=== PATIENT | male | born 1990 | race Caucasian/White ===

== ENCOUNTER 2022-03-25 20:06 | Observation (INO) ==
--- NOTE | 2022-03-25 20:55 | Emergency Department Note ---
Impression & Plan Hypertensive emergency, Non-ST elevation [place] (NSTEMI), Acute CHF (congestive heart failure) ED Provider Note HISTORY OF PRESENT ILLNESS: Patient is a 31-year-old transgender female presenting with abdominal bloating. She was evaluated at her primary care provider's office and was found to be significantly hypertensive and was referred to the emergency department. Patient reports that she has been having significant swelling and bloating of her abdomen for the last week or so. Denies any chest pain. She reports shortness of breath with a nonproductive cough. Reports some subjective fevers. Denies any recent exposure to sick contacts. 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 ROS: as above PHYSICAL EXAM: Constitutional: Patient appears in no acute distress. HENT: Head: Normocephalic and atraumatic. Eyes: EOMI, PERRL Mouth/Throat: Mucous membranes moist. Neck: Trachea midline. Neck supple. Cardiovascular: Tachycardic with regular rhythm. No murmurs, rubs or gallops. Intact distal pulses. Pulmonary/Chest: No respiratory distress. Breath sounds clear and equal bilaterally. No wheezes or rales. Abdominal: BS +. Abdomen soft, no rebound or guarding. Generalized TTP. Back: No midline spinal tenderness, no paraspinal tenderness, no CVA tenderness. Musculoskeletal: No edema, tenderness or deformity noted. Skin: Warm and dry. No rash, erythema, pallor or cyanosis Psychiatric: Appropriate mood and affect for situation. Neurological: Alert and keenly responsive. CN II-XII grossly intact, moving all extremities equally and fully. MDM: - Vitals signs showed hypertension and tachycardia. - History obtained via patient. Patient presents with abdominal bloating. Patient reports that she has been having swelling and bloating of her abdomen for the last week or so when she presented to her outpatient primary care provider's office for further evaluation. She was found to be significantly hypertensive at the facility and referred to the emergency department for further evaluation. Patient reports she has been having a nonproductive cough "for a while." She smokes daily. She also was snorting methamphetamine up until 2 weeks ago. She reports that she does not take her prescribed antihypertensive medications - Chronic conditions affecting care: HTN - Differential diagnoses include, but are not limited to: ACS; ascites; pneumonia; urinary tract infection; kidney injury - Order placed for continuous cardiac monitoring. At this time, monitor showed rate of 115 bpm with normal sinus rhythm, per my interpretation. - External medical records reviewed. Patient follows up in [facility] for her type 2 diabetes, hypertension, bipolar disorder and gender dysphoria. She is supposed to be on carvedilol and losartan. - EKG reviewed by myself showed normal sinus rhythm. Rate 113 bpm. No acute ischemic changes. QTc 488. Normal intervals. Patient does have an incomplete right bundle branch block. No prior EKGs to compare to. - Laboratory workup interpreted by myself showed leukocytosis (WBC 13.0); stable electrolytes; elevated troponin (113.1); elevated BNP (525); elevated dimer - CXR shows slight cardiomegaly and perivascular congestion, per my int erpretation. - Patient significantly hypertensive on arrival. Given 5 mg of IV hydralazine with minimal impact on her pressures. Given that she has evidence of end organ damage classifying her in hypertensive urgency, she was started on an IV nitroglycerin drip for further blood pressure management. Repeat pressures on nitroglycerin drip are improved. IV nicardipine not utilized secondary to p atient's heart failure status. - Discussion was had with social work about patient's case and need for admission. - Hospitalist, Dr. Nunn, consulted for admission. - Patient admitted to [facility] Hospitalist service for further evaluation and management. I provided 48 minutes of critical care time to this patient's care outside of billable procedures. ASSESSMENT AND PLAN: Diagnosis: Hypertensive emergency; NSTEMI; acute CHF exacerbation Plan: admit Past Med/Surg History Medical History (Updated 03/25/22 @ 23:56 by Charlotte Rodgers MD) No pertinent family history Surgical History (Updated 12/28/20 @ 17:01 by Kevin Angeles) History of hernia repair History of kidney removal Social History (Updated 12/28/20 @ 17:03 by Kevin Angelse) Smoking Status: Current every day smoker Hx Alcohol Use: No Hx Substance Use: Yes Prescribed Medications: Marijuana Non-Prescribed Med ications: Crack / Cocaine and Methamphetamines Feels Safe at Home: Yes Sunscreen Use: No Allergies Allergies Allergy/AdvReac Type Severity Reaction Status Date / Time No Known Allergies Allergy Verified 12/28/20 16:49 Home Meds Home Medications Medication Instructions Recorded Confirmed aripiprazole 2 mg tablet (Abilify) 2 mg PO DAILY 12/28/20 12/28/20 atomoxetine 10 mg capsule 40 mg PO QAM 12/28/20 12/28/20 (Strattera) buspirone 5 mg tablet 5 mg PO BID 12/28/20 12/28/20 carvedilol phosphate 10 mg 10 mg PO DAILY 12/28/20 12/28/20 capsule,[id number] multiphase (Coreg CR) hydroxyzine pamoate 25 mg capsule 25 mg PO BID PRN 12/28/20 12/28/20 losartan 25 mg tablet 25 mg PO BID 12/28/20 12/28/20 metformin 500 mg tablet 500 mg PO DAILY 12/28/20 12/28/20 omeprazole 20 mg capsule,delayed 20 mg PO DAILY 12/28/20 12/28/20 release venlafaxine 75 mg capsule,extended 75 mg PO DAILY 12/28/20 12/28/20 release 24 hr (Effexor XR) Results & Data (ED) Vital Signs Vital Signs - 24 hr 03/25/22 20:12 03/25/22 20:42 03/25/22 20:50 Temperature 36.2 C L Temperature Source Temporal Artery Scan Pulse Rate 119 H 109 H 114 H Pulse Rate from SpO2 Sensor 109 H 115 H Respiratory Rate 20 22 17 Blood Pressure 209/157 H Blood Pressure Mean 174 Pulse Oximetry 97 98 99 Oxygen Delivery Method Room Air Sepsis Recent Fever Within 48 Hours No Sepsis New/Unexplained Change in Mental Status N/A Sepsis Action Taken by Nursing No Action Required 03/25/22 21:00 03/25/22 21:10 03/25/22 21:20 Temperature Temperature Source Pulse Rate 113 H 110 H 112 H Pulse Rate from SpO2 Sensor 114 H 110 H 112 H Respiratory Rate 19 12 15 Blood Pressure Blood Pressure Mean Pulse Oximetry 96 99 99 Oxygen Delivery Method Sepsis Recent Fever Within 48 Hours Sepsis New/Unexplained Change in Mental Status Sepsis Action Taken by Nursing 03/25/22 21:24 03/25/22 21:24 03/25/22 21:30 Temperature Temperature Source Pulse Rate 112 H Pulse Rate from SpO2 Sensor Respiratory Rate 14 Blood Pressure 205/142 H 228/160 H Blood Pressure Mean 163 182 Pulse Oximetry Oxygen Delivery Method Sepsis Recent Fever Within 48 Hours Sepsis New/Unexplained Change in Mental Status Sepsis Action Taken by Nursing 03/25/22 21:30 03/25/22 21:40 03/25/22 21:50 Temperature Temperature Source Pulse Rate 111 H 110 H 114 H Pulse Rate from SpO2 Sensor 109 H Respiratory Rate 25 H 20 30 H Blood Pressure Blood Pressure Mean Pulse Oximetry 97 Oxygen Delivery Method Sepsis Recent Fever Within 48 Hours Sepsis New/Unexplained Change in Mental Status Sepsis Action Taken by Nursing 03/25/22 22:00 03/25/22 22:00 03/25/22 22:10 Temperature Temperature Source Pulse Rate 113 H 112 H Pulse Rate from SpO2 Sensor Respiratory Rate 16 22 Blood Pressure 231/175 H Blood Pressure Mean 193 Pulse Oximetry Oxygen Delivery Method Sepsis Recent Fever Within 48 Hours Sepsis New/Unexplained Change in Mental Status Sepsis Action Taken by Nursing 03/25/22 22:19 03/25/22 22:19 03/25/22 22:20 Temperature Temperature Source Pulse Rate 112 H 112 H Pulse Rate from SpO2 Sensor Respiratory Rate 22 20 Blood Pressure 207/152 H Blood Pressure Mean 170 Pulse Oximetry Oxygen Delivery Method Sepsis Recent Fever Within 48 Hours Sepsis New/Unexplained Change in Mental Status Sepsis Action Taken by Nursing 03/25/22 22:27 03/25/22 22:27 03/25/22 22:30 Temperature Temperature Source Pulse Rate 113 H 113 H Pulse Rate from SpO2 Sensor Respiratory Rate 17 15 Blood Pressure 228/172 H Blood Pressure Mean 190 Pulse Oximetry Oxygen Delivery Method Sepsis Recent Fever Within 48 Hours Sepsis New/Unexplained Change in Mental Status Sepsis Action Taken by Nursing 03/25/22 22:38 03/25/22 22:38 03/25/22 22:40 Temperature Temperature Source Pulse Rate 111 H 112 H Pulse Rate from SpO2 Sensor Respiratory Rate 30 H 22 Blood Pressure 182/148 H Blood Pressure Mean 159 Pulse Oximetry Oxygen Delivery Method Sepsis Recent Fever Within 48 Hours Sepsis New/Unexplained Change in Mental Status Sepsis Action Taken by Nursing 03/25/22 22:41 03/25/22 22:41 03/25/22 22:50 Temperature Temperature Source Pulse Rate 115 H Pulse Rate from SpO2 Sensor Respiratory Rate 22 Blood Pressure 200/149 H 221/139 H Blood Pressure Mean 166 166 Pulse Oximetry Oxygen Delivery Method Sepsis Recent Fever Within 48 Hours Sepsis New/Unexplained Change in Mental Status Sepsis Action Taken by Nursing 03/25/22 22:50 03/25/22 23:00 03/25/22 23:00 Temperature Temperature Source Pulse Rate 117 H 115 H Pulse Rate from SpO2 Sensor Respiratory Rate 38 H 30 H Blood Pressure 223/159 H Blood Pressure Mean 180 Pulse Oximetry Oxygen Delivery Method Sepsis Recent Fever Within 48 Hours Sepsis New/Unexplained Change in Mental Status Sepsis Action Taken by Nursing 03/25/22 23:10 03/25/22 23:10 03/25/22 23:16 Temperature Temperature Source Pulse Rate 120 H Pulse Rate from SpO2 Sensor Respiratory Rate 26 H Blood Pressure 234/151 H 209/153 H Blood Pressure Mean 178 171 Pulse Oximetry Oxygen Delivery Method Sepsis Recent Fever Within 48 Hours Sepsis New/Unexplained Change in Mental Status Sepsis Action Taken by Nursing 03/25/22 23:16 03/25/22 23:20 03/25/22 23:20 Temperature Temperature Source Pulse Rate 118 H 119 H Pulse Rate from SpO2 Sensor Respiratory Rate 25 H 22 Blood Pressure 241/143 H Blood Pressure Mean 175 Pulse Oximetry Oxygen Delivery Method Sepsis Recent Fever Within 48 Hours Sepsis New/Unexplained Change in Mental Status Sepsis Action Taken by Nursing 03/25/22 23:30 03/25/22 23:30 03/25/22 23:40 Temperature Temperature Source Pulse Rate 119 H Pulse Rate from SpO2 Sensor Respiratory Rate 36 H Blood Pressure 223/139 H 215/166 H Blood Pressure Mean 167 182 Pulse Oximetry Oxygen Delivery Method Sepsis Recent Fever Within 48 Hours Sepsis New/Unexplained Change in Mental Status Sepsis Action Taken by Nursing 03/25/22 23:40 03/25/22 23:50 03/25/22 23:50 Temperature Temperature Source Pulse Rate 119 H 119 H Pulse Rate from SpO2 Sensor Respiratory Rate 29 H 37 H Blood Pressure 226/150 H Blood Pressure Mean 175 Pulse Oximetry Oxygen Delivery Method Sepsis Recent Fever Within 48 Hours Sepsis New/Unexplained Change in Mental Status Sepsis Action Taken by Nursing 03/26/22 00:00 03/26/22 00:00 03/26/22 00:05 Temperature Temperature Source Pulse Rate 117 H Pulse Rate from SpO2 Sensor Respiratory Rate 17 Blood Pressure 204/130 H 209/152 H Blood Pressure Mean 154 171 Pulse Oximetry Oxygen Delivery Method Sepsis Recent Fever Within 48 Hours Sepsis New/Unexplained Change in Mental Status Sepsis Action Taken by Nursing 03/26/22 00:05 03/26/22 00:10 03/26/22 00:10 Temperature Temperature Source Pulse Rate 120 H 121 H Pulse Rate from SpO2 Sensor Respiratory Rate 38 H 27 H Blood Pressure 176/152 H Blood Pressure Mean 160 Pulse Oximetry Oxygen Delivery Method Sepsis Recent Fever Within 48 Hours Sepsis New/Unexplained Change in Mental Status Sepsis Action Taken by Nursing Laboratory Data 03/25/22 20:47 03/25/22 20:47 Lab Results 03/25/22 03/25/22 03/25/22 Range/Units 20:47 20:47 20:47 WBC 13.00 H (4.8-10.8) K/ul RBC 4.60 L (4.63-6.08) M/uL Hgb 12.4 L (14.0-18.0) g/dl Hct 38.7 L (40.1-51.0) % MCV 84.1 (80.0-100.0) fL MCH 27.0 (25.0-34.0) pg MCHC 32.0 (32.0-36.0) g/dL RDW Std Deviation 45.3 (36.4-46.3) fL RDW Coeff of Liza 15.0 H (11.5-14.5) % Plt Count 383 (130-400) K/uL MPV 10.4 (9.4-12.4) fL Immature Gran % (Auto) 0.4 % Neut % (Auto) 73.4 % Lymph % (Auto) 17.1 % [place] % (Auto) 6.4 % Eos % (Auto) 1.8 % Baso % (Auto) 0.9 % Neut # (Auto) 9.54 H (1.4-6.5) K/uL Lymph # (Auto) 2.22 (1.2-3.4) K/uL [place] # (Auto) 0.83 H (0.24-0.82) K/uL Eos # (Auto) 0.24 (0-0.50) K/uL Baso # (Auto) 0.12 (0-0.2) K/uL Immature Gran # (Auto) 0.05 H (0.00-0.02) K/uL PT Cancelled INR Cancelled APTT Cancelled PTT Ratio Cancelled D-Dimer (0-500) ug/L FEU Sodium 136 (136-145) mmol/L Potassium 4.3 (3.5-5.1) mmol/L Chloride 106 (98-107) mmol/L Carbon Dioxide 23 (21-32) mmol/L Anion Gap 7 (3-11) BUN 14 (6-23) mg/dl Creatinine 0.87 (0.6-1.4) mg/dl Est Cr Clr Drug Dosing 174.0 ml/min Est GFR ( Amer) 132.4 ml/min Est GFR (Non-Af Amer) 114.2 ml/min BUN/Creatinine Ratio 16.1 (10-20) Glucose 116 H (70-99(Fasting)) mg/dl Calcium 8.7 (8.5-10.1) mg/dl Total Bilirubin 0.5 (0.2-1.0) mg/dl AST 64 H (13-39) U/L ALT 57 H (7-52) U/L Alkaline Phosphatase 107 H (34-104) U/L Troponin I High Sens 113.1 H* (0-20) pg/ml B-Natriuretic Peptide (0-100) pg/ml Total Protein 6.8 (6.0-8.3) gm/dl Albumin 3.6 (3.4-5.0) gm/dl Globulin 3.2 (2.5-4.0) gm/dl Albumin/Globulin Ratio 1.1 (0.9-2) Urine Color Urine Appearance (Clear) Urine pH (4.5-7.5) Ur Specific [place] (1.000-1.030) Urine Protein (Negative) Urine Glucose (UA) (Negative) Urine Ketones (Negative) Urine Blood (Negative) Urine Nitrite (Negative) Urine Bilirubin (Negative) Urine Urobilinogen (Negative) Ur Leukocyte Esterase (Negative) Urine WBC (Auto) (0-5) /hpf Urine RBC (Auto) (0-4) /hpf U Hyaline Cast (Auto) (0-5) /lpf U Epithel Cells (Auto) (0-5) /lpf Urine Bacteria (Auto) (Negative) 03/25/22 03/25/22 03/25/22 Range/Units 20:47 22:34 22:58 WBC (4.8-10.8) K/ul RBC (4.63-6.08) M/uL Hgb (14.0-18.0) g/dl Hct (40.1-51.0) % MCV (80.0-100.0) fL MCH (25.0-34.0) pg MCHC (32.0-36.0) g/dL RDW Std Deviation (36.4-46.3) fL RDW Coeff of Liza (11.5-14.5) % Plt Count (130-400) K/uL MPV (9.4-12.4) fL Immature Gran % (Auto) % Neut % (Auto) % Lymph % (Auto) % [place] % (Auto) % Eos % (Auto) % Baso % (Auto) % Neut # (Auto) (1.4-6.5) K/uL Lymph # (Auto) (1.2-3.4) K/uL [place] # (Auto) (0.24-0.82) K/uL Eos # (Auto) (0-0.50) K/uL Baso # (Auto) (0-0.2) K/uL Immature Gran # (Auto) (0.00-0.02) K/uL PT 11.0 INR 1.0 APTT 23.4 PTT Ratio 0.9 D-Dimer 660 H* (0-500) ug/L FEU Sodium (136-145) mmol/L Potassium (3.5-5.1) mmol/L Chloride (98-107) mmol/L Carbon Dioxide (21-32) mmol/L Anion Gap (3-11) BUN (6-23) mg/dl Creatinine (0.6-1.4) mg/dl Est Cr Clr Drug Dosing ml/min Est GFR ( Amer) ml/min Est GFR (Non-Af Amer) ml/min BUN/Creatinine Ratio (10-20) Glucose (70-99(Fasting)) mg/dl Calcium (8.5-10.1) mg/dl Total Bilirubin (0.2-1.0) mg/dl AST (13-39) U/L ALT (7-52) U/L Alkaline Phosphatase (34-104) U/L Troponin I High Sens (0-20) pg/ml B-Natriuretic Peptide 525 H (0-100) pg/ml Total Protein (6.0-8.3) gm/dl Albumin (3.4-5.0) gm/dl Globulin (2.5-4.0) gm/dl Albumin/Globulin Ratio (0.9-2) Urine Color Yellow Urine Appearance Clear (Clear) Urine pH 5.5 (4.5-7.5) Ur Specific [place] 1.020 (1.000-1.030) Urine Protein 4+ H (Negative) Urine Glucose (UA) Negative (Negative) Urine Ketones Negative (Negative) Urine Blood Negative (Negative) Urine Nitrite Negative (Negative) Urine Bilirubin Negative (Negative) Urine Urobilinogen Negative (Negative) Ur Leukocyte Esterase Negative (Negative) Urine WBC (Auto) 1-5 (0-5) /hpf Urine RBC (Auto) 0-4 (0-4) /hpf U Hyaline Cast (Auto) 1-5 (0-5) /lpf U Epithel Cells (Auto) 20-30 H (0-5) /lpf Urine Bacteria (Auto) Negative (Negative) Administered Medications Nitroglycerin/Dextrose (Nitroglycerin/D5w 100 Mcg/Ml) 250 mls @ 21 mls/hr IV .[id number] [facility]; Protocol Stop: 04/24/22 21:59 Last Titration: 03/26/22 00:14 Dose: 45 mcg/min, 27 mls/hr Documented By: Titration: 03/26/22 00:08 Dose: 40 mcg/min, 24 mls/hr Documented By: Titration: 03/25/22 23:53 Dose: 35 mcg/min, 21 mls/hr Documented By: Titration: 03/25/22 23:45 Dose: 30 mcg/min, 18 mls/hr Documented By: Titration: 03/25/22 23:36 Dose: 25 mcg/min, 15 mls/hr Documented By: Titration: 03/25/22 23:19 Dose: 20 mcg/min, 12 mls/hr Documented By: Titration: 03/25/22 23:10 Dose: 15 mcg/min, 9 mls/hr Documented By: Titration: 03/25/22 22:29 Dose: 10 mcg/min, 6 mls/hr Documented By: Admin: 03/25/22 22:00 Dose: 5 mcg/min, 3 mls/hr Documented By: NITIN Co-signed By: YODIT Discontinued Medications Clonidine HCl (Clonidine Hcl 0.1 Mg Tab) 0.1 mg PO NOW ONE Stop: 03/25/22 23:43 Last Admin: 03/26/22 00:06 Dose: 0.1 mg Documented By: NITIN Hydralazine HCl (Hydralazine Hcl 20 Mg/Ml Vial) 5 mg IV NOW ONE Stop: 03/25/22 21:19 Last Admin: 03/25/22 21:26 Dose: 5 mg Documented By: NITIN Labetalol HCl (Labetalol Hcl Iv 5 Mg/Ml 20ml) 10 mg IV NOW STA Stop: 03/25/22 23:37 Last Admin: 03/25/22 23:53 Dose: Not Given Documented By: NITIN Lisinopril (Lisinopril 5 Mg Tab) 5 mg PO NOW ONE Stop: 03/25/22 23:44 Last Admin: 03/26/22 00:06 Dose: 5 mg Documented By: NITIN Lorazepam (Lorazepam 2 Mg/1 Ml Vial) 0.5 mg IV NOW STA Stop: 03/25/22 23:06 Last Admin: 03/25/22 23:33 Dose: 0.5 mg Documented By: NITIN Nicotine (Nicotine 14 Mg/24 Hr Patch) 14 mg TD NOW STA Stop: 03/25/22 22:22 Last Admin: 03/25/22 23:18 Dose: Not Given Documented By: NITIN Nicotine Polacrilex (Nicotine Polacrilex 2 Mg Gum) 1 piece MT ONCE ONE Stop: 03/25/22 22:46 Last Admin: 03/25/22 23:09 Dose: 1 piece Documented By: NITIN Imaging Data Radiologist's Impression: Chest X-Ray 03/25/22 20:52 XR chest 1V portable CLINICAL HISTORY: Cough. COMPARISON STUDY: No previous studies for comparison. FINDINGS: Lung volumes are normal. No pneumothorax or pleural effusion is identified. There is mild enlargement of the cardiac silhouette. Slight in terstitial prominence is noted. There is no definite consolidation. Apparent retrocardiac opacities are likely artifactual. IMPRESSION: 1. Mild enlargement of the cardiac silhouette with interstitial prominence. This may reflect pulmonary vascular congestion. 2. Apparent retrocardiac opacities which are likely artifactual. If persistent symptoms, follow-up PA and lateral chest radiographs are recommended to exclude the less likely possibility of consolidation. ACT 112: Negative or not required by law. Electronically signed by: Genaro Kelley M.D. 03/25/2022 10:06 PM Discharge Plan Visit Data Chief Complaint: Illness Stated Complaint: REF BY DOC, HIGH BLOOD PRESSURE,WATER RETENTION ED Provider: Charlotte Rodgers Discharge Problem: Hypertensive emergency, Non-ST elevation [place] (NSTEMI), Acute CHF (congestive heart failure) Forms Stand Alone Forms: [facility] [place] Prescriptions Prescriptions: No Action atomoxetine [Strattera] 10 mg capsule 40 mg PO QAM hydroxyzine pamoate 25 mg capsule 25 mg PO BID PRN aripiprazole [Abilify] 2 mg tablet 2 mg PO DAILY venlafaxine [Effexor XR] 75 mg capsule,extended release 24hr 75 mg PO DAILY omeprazole 20 mg capsule,delayed release(DR/EC) 20 mg PO DAILY buspirone 5 mg tablet 5 mg PO BID carvedilol phosphate [Coreg CR] 10 mg capsule, ER multiphase 24 hr 10 mg PO DAILY Rx Instructions: must administer with a meal/food metformin 500 mg tablet 500 mg PO DAILY losartan 25 mg tablet 25 mg PO BID Referrals Referrals: Unknown,Unknown [] -
[2022-03-25 21:08] LABS: Basophils # (auto) 0.12 K/uL (0-0.2); Basophils % (auto) 0.9 %; Eosinophils # (auto) 0.24 K/uL (0-0.50); Eosinophils % (auto) 1.8 %; Hematocrit (blood only) 38.7 % (40.1-51.0); Hemoglobin 12.4 g/dl (14.0-18.0); Immature Granulocytes # (auto) 0.05 K/uL (0.00-0.02); Immature Granulocytes % (auto) 0.4 %; Lymphocytes # (auto) 2.22 K/uL (1.2-3.4); Lymphocytes % (auto) 17.1 %; Mean Corpuscular Volume 84.1 fL (80.0-100.0); Mean Platelet Volume 10.4 fL (9.4-12.4); Monocytes # (auto) 0.83 K/uL (0.24-0.82); Monocytes % (auto) 6.4 %; Neutrophils # (auto) 9.54 K/uL (1.4-6.5); Neutrophils % (auto) 73.4 %; Platelet Count 383 K/uL (130-400); RDW Standard Deviation 45.3 fL (36.4-46.3)
[2022-03-25] MEDS ORDERED: hydrALAZINE HCL 20 MG/ML VIAL IV ONE (21:18)
[2022-03-25] MEDS ORDERED: STAT IV Infusion **Titration per Protocol STA (21:48)
[2022-03-25 21:49] LABS: Troponin I High Sensitivity 113.1 pg/ml (0-20)
[2022-03-25 21:54] LABS: Albumin Level 3.6 gm/dl (3.4-5.0); Bilirubin,Total 0.5 mg/dl (0.2-1.0); Calcium 8.7 mg/dl (8.5-10.1); Potassium 4.3 mmol/L (3.5-5.1)
[2022-03-25 22:00] LABS: Albumin Globulin Ratio 1.1 (0.9-2); BUN Creatinine Ratio 16.1 (10-20); Est GFR (African American) 132.4 ml/min; Est GFR (Non-African American) 114.2 ml/min; Globulin 3.2 gm/dl (2.5-4.0); Total Protein 6.8 gm/dl (6.0-8.3)
[2022-03-25] MEDS: NITROGLYCERIN/D5W 100MCG/ML 250 ML IV SCH (22:00)
--- NOTE | 2022-03-25 22:08 | XRay Report ---
XR chest 1V portable CLINICAL HISTORY: Cough. COMPARISON STUDY: No previous studies for comparison. FINDINGS: Lung volumes are normal. No pneumothorax or pleural effusion is identified. There is mild e nlargement of the cardiac silhouette. Slight interstitial prominence is noted. There is no definite c onsolidation. Apparent retrocardiac opacities are likely artifactual. IMPRESSION: 1. Mild enlargement of the cardiac silhouette with interstitial prominence. This may reflect pulmonar y vascular congestion. 2. Apparent retrocardiac opacities which are likely artifactual. If persistent symptoms, follow-up PA and lateral chest radiographs are recommended to exclude the less likely possibility of consolidatio n. ACT 112: Negative or not required by law. Electronically signed by: Genaro Kelley M.D. 03/25/2022 10:06 PM
[2022-03-25] MEDS ORDERED: NICOTINE 14 MG/24 HR PATCH TD STA (22:21)
[2022-03-25] MEDS ORDERED: NICOTINE POLACRILEX 2 MG GUM MT ONE (22:45)
[2022-03-25 22:53] LABS: Partial Thromboplastin Ratio 0.9; Partial Thromboplastin Time 23.4 Seconds (21.0-31.0)
[2022-03-25] MEDS ORDERED: LORazepam 2 MG/1 ML VIAL IV STA (23:05)
[2022-03-25 23:31] LABS: D Dimer 660 ug/L FEU (0-500)
[2022-03-25] MEDS ORDERED: LABETALOL HCL IV 5 MG/ML 20ML IV STA (23:36)
[2022-03-25 23:40] LABS: Appearance Urine Clear (Clear); Bacteria Urine Automated Negative (Negative); Bilirubin Urine Negative (Negative); Blood Urine Negative (Negative); Color Urine Yellow; Epithelial Cell Urine Auto 20-30 /lpf (0-5); Glucose Urine UA Negative (Negative); Ketones Urine Negative (Negative); Leukocyte Esterase Urine Negative (Negative); Nitrite Urine Negative (Negative); Protein Urine 4+ (Negative); RBC Urine Automated 0-4 /hpf (0-4); Urobilinogen Urine Negative (Negative); pH Urine 5.5 (4.5-7.5)
[2022-03-25] MEDS ORDERED: cloNIDine HCL 0.1 MG TAB PO ONE ×2 (23:41→23:42)
[2022-03-25] MEDS ORDERED: lisinopril 5 MG TAB PO ONE (23:43)
[2022-03-26] MEDS ORDERED: FUROSEMIDE 40 MG/4 ML VIAL IV ONE (00:14)
[2022-03-26 00:54] LABS: POC Urine Bilirubin 1+ (Negative); POC Urine Blood 50 (Negative); POC Urine Glucose Normal (Normal); POC Urine Ketones 1+ (Small) (Negative); POC Urine Leukocytes Negative (Negative); POC Urine Nitrite Negative (Negative); POC Urine Protein 3+ (Negative); POC Urine Urobilinogen Normal (Normal); POC Urine pH 5 (4.5-7.5)
[2022-03-26 00:59] LABS: Influenza A virus by PCR Negative (Neg); Influenza B virus by PCR Negative (Neg); RSV by PCR Negative (Neg); SARS CoV2 RNA(COVID-19) Ceph NEGATIVE (Negative)
[2022-03-26] MEDS ORDERED: OPTIRAY 320 500ml IV ONE (01:02)
[2022-03-26] MEDS ORDERED: NICOTINE POLACRILEX 2 MG GUM MT STA (01:33)
[2022-03-26] MEDS ORDERED: carvediloL 3.125 MG TAB PO ONE (02:22)
--- NOTE | 2022-03-26 02:25 | Critical Care Consultation ---
Date of Consultation March 26, 2022 Assessment & Plan (1) Type 2 diabetes mellitus: (2) Asthma: (3) Gender dysphoria in adult: (4) Ihul-xm-bkwgmw transgender person: (5) Hypertension: (6) Hypertensive emergency: (7) Acute CHF (congestive heart failure): (8) Substance abuse: Plan Reason Critically Ill: 31 YOM admitted for hypertension with end organ involvment (Heart, Kidneys), in the setting of medicine non compliance. Patient initiated on Nitroglycerine infusion in EMD- appears to be tolerating at this time. Admit to ICU stablaize BP with targeting MAP and imitation of oral medications and titration. Neuro - Anxiety/Depression, Gender dysphoria CAM ICU: Negativ - No acute needs at this time continue home Venlafaxine, Seroquel, Ativan PRN Cardiac - HTN Emergency, HFpEF, Acute on Chronic HF exacerbation - continue with titration of afterload reducing agents- currently on NTG at 55 mcg/min with BP close to goal at this time- Goal MAP 120-130 until AM - if continued need to increase or refractory change to Nicardipine infusion - Re-initiate Carvedilol- dose now - most recent dose per Hospitalist is 3.125mg PO BID - Continue with MERCEDES/ARB pending blood pressure needs in AM. If acute need continue with Captopril/Lisinopril. If within goal - get back on Losartan 100mg PO daily - Diurese PRN with IV Lasix - ECHO in am - Cardiology consulted by primary service Respiratory - Asthma - controlled, continue with prn albuterol GI -Elevated liver enzymes - likley in the setting of elevated blood pressure- follow with diuresing and controlling BP - follow consider RUQUS RENAL/LYTES - Proteinuria with microscopic hematuria in the setting of HTN - Control BP follow renal indices - No evidence of hydro - consider Renal Artery Ultrasound if refractory BP - No acute needs ENDO - DMII - ICU hyperglycemia protocol goal <180mg/dl - sliding scale insulin HEME - No acute needs ID - No acute needs at this time - thickened bladder noted on CT A/P- asymptomatic per patient - mild leukocytosis - follow fever curve and WBC- hold on abx therapy at this time as no clear source of infective cause LINES/IV ACCESS - PIV Continue use of these lines DVT PROPHYLAXIS - SCDS, Lovenox DISPO- ICU while requiring infusion for BP control I have personally spent 40 minutes of critical care time in the direct management of this patient. This is a life/limb threatening event. This includes time spent evaluating patient, direct bedside care, chart review, placing orders, interpretation of diagnostic studies, discussion with consultants, patient, and family members, as well as other required patient management activities. This time is exclusive of all separately billable procedures, and teaching time and separate from and in addition to any other critical care service time. Thank you for allowing us to participate in the care of this patient. Please refer to my attending physician's documentation for any further recommendations. Supervising Physician Co-Signing Physician Notes 31-year-old patient with a past medical history of bipolar disorder, borderline personality disorder, major depressive disorder and polysubstance abuse who presented to the hospital due to elevated blood pressure. Patient was reported ly noncompliant with therapy and also abusing methamphetamines. Patient is wanting to be discharged as soon as possible. They were on nitroglycerin overnight which has been weaned off. Blood pressures have been at goal off of nitroglycerin. Oral antihypertensive medications have been restarted. Cardiology consult is pending. No further role for ICU at this time. Thank you for allowing us participate in the care of the patient. Please call with questions. History of Present Illness Reason for Consultation: HTN Emergency/Urgency Requesting Physician: Alejandro Nunn MD Attending Physician: Dr. Nunn History of Present Illness 31 YO transitioning from Male to Female. Prefers She/her/hers. Patient with history of HTN, DM, HFpEF. Patient presents to EMD from referral of PCP office secondary to not taking home medications and concern for severely elevated blood pressure. Patient reports not taking home medications for the past 2 weeks as was using meth and marijuana at the time. Has not used meth or other sympathomimetics in past 2 weeks, but did use marijuana today. Patient presented with SBP >200 and DBP >150 with highest reading noted 234/151 with MAP 178. Patient was originally given Hydralazine and Labetalol in the EMD with minimal response, was placed on nitroglycerine drip and Hospitalist service was consulted for admission. Patient is without symptoms of chest pain, pressure, difficulty breathing, back pain or neurological compromise. A trial of oral agents was given that consisted of Clonidine 0.1mg, Lasix 40mg IV, Lisinopril 5m g - this has brought SBP down to around 180-200 with MAPS remaining 150s. Labs are notable for elevated HScTNI, BNP, and blood and protein in the UA. Patient underwent CTA of the chest and CT of abdomen and pelvis with no interpreted pathology. Patient reports that generally feeling well, has had some diarrhea over the past few days. She also reports that she does not withdraw when she stops using meth. Patient will be admitted to ICU continue NTG infusion as currently at 55mcg/min- start back oral Carvedilol and MERCEDES with transition back to ARB. COVID test on admission is: NEGATIVE Allergies Allergy/AdvReac Type Severity Reaction Status Date / Time No Known Allergies Allergy Verified 03/26/22 02:22 Home Medications Medication Instructions Recorded Confirmed Type albuterol sulfate 90 mcg/actuation 2 puff inhalation BID PRN 03/26/22 03/26/22 History aerosol inhaler (Ventolin HFA) Shortness Of Breath Or Wheezing aripiprazole 5 mg tablet 5 mg PO DAILY 03/26/22 03/26/22 History atomoxetine 40 mg capsule 40 mg PO DAILY 03/26/22 03/26/22 History buspirone 10 mg tablet 10 mg PO BID 03/26/22 03/26/22 History carvedilol 3.125 mg tablet 3.125 mg PO BID 03/26/22 03/26/22 History chlorthalidone 25 mg tablet 25 mg PO DAILY 03/26/22 03/26/22 History estradiol 2 mg tablet 2 mg PO DAILY 03/26/22 03/26/22 History lorazepam 1 mg tablet 1 mg PO TID PRN Anxiety 03/26/22 03/26/22 History losartan 100 mg tablet 100 mg PO DAILY 03/26/22 03/26/22 History metformin 500 mg tablet,extended 500 mg PO BID 03/26/22 03/26/22 History release 24 hr omeprazole 20 mg capsule,delayed 20 mg PO DAILY 03/26/22 03/26/22 History release quetiapine 100 mg tablet 100 mg PO HS 03/26/22 03/26/22 History venlafaxine 150 mg 150 mg PO DAILY 03/26/22 03/26/22 History capsule,extended release 24 hr Patient History Medical History Asthma CHF (congestive heart failure) Depression with anxiety Gender dysphoria in adult Hypertension [id number] transgender person No pertinent family history Non-ST elevation NM (NSTEMI) Surgical History History of hernia repair History of kidney removal Social History Smoking Status: Current every day smoker Second Hand Exposure: No; Do You Dip or Chew Tobacco: No; Tobacco Cessation Education Requested by Patient: No Hx Alcohol Use: No Hx Substance Use: Yes Prescribed Medications: Marijuana Non-Prescribed Medications: Crack / Cocaine and Methamphetamines Last Used Substance: Days (ago) Preferred Language: Martiniquais Communication Ability: Effective Publicity Manager Required: No Beliefs That Will Affect Care: None Current Living Situation: Significant Other Other Information That Helps Us Care for You: No Feels Safe at Home: Yes Safety Concerns: Feels Safe At This Time Sunscreen Use: No Assistive Devices: None Review of Systems Review of Systems: REVIEW OF SYSTEMS: Constitutional: No fever, sweats or chills Eyes: No diplopia, no worsening or blurred vision ENT: normal hearing, no trouble swallowing Respiratory: No cough, sputum, dyspnea at rest or on exertion Cardiovascular: No chest pain, tightness or palpitations Abdomen: (+) diarrhea, No pain, nausea, vomiting, diarrhea or constipation Musculoskeletal: No joint pain, calf pain, swelling Neurologic: No weakness, numbness/tingling, or balance problems Psychiatric: (+) anxiety or depression Skin: (+) scabs to arms Physical Exam Physical Exam: PHYSICAL EXAM: General: awake, alert, no apparent distress Head: Normocephalic, atraumatic ENT: PERRLA, EOMI, no pharyngeal exudate, mucous membranes moist Neuro: AAO x 3, speech clear and appropriate, strength intact bilaterally 5/5, sensation intact and equal all extremities and dermatomes, no pronator drift, no tremor, no nystagmus, no headaches or vision changes Chest: equal rise and fall of the chest, no accessory muscle use, no heaves or thrills, decreased in bases with fine crackles in bilateral bases, on room air, Cardiac: Regular rate and rhythm, telemetry reviewed- sinus tachycardia, skin warm dry, cap refill <3 seconds, peripheral pusles +2 no JVD, no murmur, no JVD, no edema GI: NABS x 4 quadrants, soft, nontender to palpation, no rebound, guarding or tenderness : Spontaneously voiding, no pain, no CVA tenderness, Extremities: Normal inspection, no peripheral edema or erythema, calfs nontender to palpation Psych: Normal mood and affect Skin: scratches and scabs to upper arms Results & Data Results & Data ([facility]) Vital Signs (Past 12 Hours) Vital Signs Temp Pulse Resp BP Pulse Ox O2 Del Method 03/26/22 01:20 122 H 30 H 03/26/22 01:20 208/133 H 03/26/22 01:10 120 H 29 H 03/26/22 01:10 182/130 H 03/26/22 01:09 121 H 24 03/26/22 01:03 24 03/26/22 00:20 123 H 25 H 03/26/22 00:20 201/149 H 03/26/22 00:10 121 H 27 H 03/26/22 00:10 176/152 H 03/26/22 00:05 120 H 38 H 03/26/22 00:05 209/152 H 03/26/22 00:00 117 H 17 03/26/22 00:00 204/130 H 03/25/22 23:50 119 H 37 H 03/25/22 23:50 226/150 H 03/25/22 23:40 119 H 29 H 03/25/22 23:40 215/166 H 03/25/22 23:30 119 H 36 H 03/25/22 23:30 223/139 H 03/25/22 23:20 119 H 22 03/25/22 23:20 241/143 H 03/25/22 23:16 118 H 25 H 03/25/22 23:16 209/153 H 03/25/22 23:10 120 H 26 H 03/25/22 23:10 234/151 H 03/25/22 23:00 115 H 30 H 03/25/22 23:00 223/159 H 03/25/22 22:50 117 H 38 H 03/25/22 22:50 221/139 H 03/25/22 22:41 115 H 22 03/25/22 22:41 200/149 H 03/25/22 22:40 112 H 22 03/25/22 22:38 182/148 H 03/25/22 22:38 111 H 30 H 03/25/22 22:30 113 H 15 03/25/22 22:27 113 H 17 03/25/22 22:27 228/172 H 03/25/22 22:20 112 H 20 03/25/22 22:19 207/152 H 03/25/22 22:19 112 H 22 03/25/22 22:10 112 H 22 03/25/22 22:00 113 H 16 03/25/22 22:00 231/175 H 03/25/22 21:50 114 H 30 H 03/25/22 21:40 110 H 20 97 03/25/22 21:30 111 H 25 H 03/25/22 21:30 228/160 H 03/25/22 21:24 205/142 H 03/25/22 21:24 112 H 14 03/25/22 21:20 112 H 15 99 03/25/22 21:10 110 H 12 99 03/25/22 21:00 113 H 19 96 03/25/22 20:50 114 H 17 99 03/25/22 20:42 109 H 22 98 03/25/22 20:12 36.2 C L 119 H 20 209/157 H 97 Room Air Laboratory Results Abnormal lab results 03/25/22 03/25/22 03/25/22 Range/Units 20:47 20:47 20:47 WBC 13.00 H (4.8-10.8) K/ul RBC 4.60 L (4.63-6.08) M/uL Hgb 12.4 L (14.0-18.0) g/dl Hct 38.7 L (40.1-51.0) % RDW Coeff of Liza 15.0 H (11.5-14.5) % Neut # (Auto) 9.54 H (1.4-6.5) K/uL [place] # (Auto) 0.83 H (0.24-0.82) K/uL Immature Gran # (Auto) 0.05 H (0.00-0.02) K/uL D-Dimer (0-500) ug/L FEU Glucose 116 H (70-99(Fasting)) mg/dl AST 64 H (13-39) U/L ALT 57 H (7-52) U/L Alkaline Phosphatase 107 H (34-104) U/L Troponin I High Sens 113.1 H* (0-20) pg/ml B-Natriuretic Peptide 525 H (0-100) pg/ml Urine Protein (Negative) POC Urine Protein (Negative) POC Urine Ketones (Negative) POC Urine Blood (Negative) POC Urine Bilirubin (Negative) U Epithel Cells (Auto) (0-5) /lpf 03/25/22 03/25/22 03/25/22 Range/Units 22:34 22:58 22:58 WBC (4.8-10.8) K/ul RBC (4.63-6.08) M/uL Hgb (14.0-18.0) g/dl Hct (40.1-51.0) % RDW Coeff of Liza (11.5-14.5) % Neut # (Auto) (1.4-6.5) K/uL [place] # (Auto) (0.24-0.82) K/uL Immature Gran # (Auto) (0.00-0.02) K/uL D-Dimer 660 H* (0-500) ug/L FEU Glucose (70-99(Fasting)) mg/dl AST (13-39) U/L ALT (7-52) U/L Alkaline Phosphatase (34-104) U/L Troponin I High Sens (0-20) pg/ml B-Natriuretic Peptide (0-100) pg/ml Urine Protein 4+ H (Negative) POC Urine Protein 3+ H (Negative) POC Urine Ketones 1+ (Small) H (Negative) POC Urine Blood 50 H (Negative) POC Urine Bilirubin 1+ H (Negative) U Epithel Cells (Auto) 20-30 H (0-5) /lpf 03/26/22 Range/Units 01:25 WBC (4.8-10.8) K/ul RBC (4.63-6.08) M/uL Hgb (14.0-18.0) g/dl Hct (40.1-51.0) % RDW Coeff of Liza (11.5-14.5) % Neut # (Auto) (1.4-6.5) K/uL [place] # (Auto) (0.24-0.82) K/uL Immature Gran # (Auto) (0.00-0.02) K/uL D-Dimer (0-500) ug/L FEU Glucose (70-99(Fasting)) mg/dl AST (13-39) U/L ALT (7-52) U/L Alkaline Phosphatase (34-104) U/L Troponin I High Sens 116.4 H* (0-20) pg/ml B-Natriuretic Peptide (0-100) pg/ml Urine Protein (Negative) POC Urine Protein (Negative) POC Urine Ketones (Negative) POC Urine Blood (Negative) POC Urine Bilirubin (Negative) U Epithel Cells (Auto) (0-5) /lpf Diagnostic Findings Chest X-Ray 03/25/22 20:52 XR chest 1V portable CLINICAL HISTORY: Cough. COMPARISON STUDY: No previous studies for comparison. FINDINGS: Lung volumes are normal. No pneumothorax or pleural effusion is identified. There is mild enlargement of the cardiac silhouette. Slight interstitial prominence is noted. There is no definite consolidation. Apparent retrocardiac opacities are likely artifactual. IMPRESSION: 1. Mild enlargement of the cardiac silhouette with interstitial prominence. This may reflect pulmonary vascular congestion. 2. Apparent retrocardiac opacities which are likely artifactual. If persistent symptoms, follow-up PA and lateral chest radiographs are recommended to exclude the less likely possibility of consolidation. ACT 112: Negative or not required by law. Electronically signed by: Genaro Kelley M.D. 03/25/2022 10:06 PM Medications Administered Home Medications albuterol sulfate 90 mcg/actuation aerosol inhaler (Ventolin HFA) 2 puff inhalation BID PRN Shortness Of Breath Or Wheezing 03/26/22 [History Confirmed 03/26/22] aripiprazole 5 mg tablet 5 mg PO DAILY 03/26/22 [History Confirmed 03/26/22] atomoxetine 40 mg capsule 40 mg PO DAILY 03/26/22 [History Confirmed 03/26/22] buspirone 10 mg tablet 10 mg PO BID 03/26/22 [History Confirmed 03/26/22] carvedilol 3.125 mg tablet 3.125 mg PO BID 03/26/22 [History Confirmed 03/26/22] chlorthalidone 25 mg tablet 25 mg PO DAILY 03/26/22 [History Confirmed 03/26/22] estradiol 2 mg tablet 2 mg PO DAILY 03/26/22 [History Confirmed 03/26/22] lorazepam 1 mg tablet 1 mg PO TID PRN Anxiety 03/26/22 [History Confirmed 03/26/22] losartan 100 mg tablet 100 mg PO DAILY 03/26/22 [History Confirmed 03/26/22] metformin 500 mg tablet,extended release 24 hr 500 mg PO BID 03/26/22 [History Confirmed 03/26/22] omeprazole 20 mg capsule,delayed release 20 mg PO DAILY 03/26/22 [History Confirmed 03/26/22] quetiapine 100 mg tablet 100 mg PO HS 03/26/22 [History Confirmed 03/26/22] venlafaxine 150 mg capsule,extended release 24 hr 150 mg PO DAILY 03/26/22 [History Confirmed 03/26/22] Active Medications Nitroglycerin/Dextrose (Nitroglycerin/D5w 100 Mcg/Ml) 250 mls @ 33 mls/hr IV .Q7H35M [facility]; Protocol Stop: 04/24/22 21:59 Last Titration: 03/26/22 02:04 Dose: 65 mcg/min, 39 mls/hr ECG Additional Comments: Sinus tachycardia Rightward axis Incomplete right bundle branch block Borderline ECG No previous ECGs available Coding Level of Care Code Critical Care 1st 30-74 mins Diagnoses Type 2 diabetes mellitus E11.9 Asthma J45.909 Gender dysphoria in adult F64.0 [id number] transgender person Z78.9 Hypertension I10 Hypertensive emergency I16.1 Acute CHF (congestive heart failure) I50.9 Substance abuse F19.10
[2022-03-26] MEDS ORDERED: CARBOHYDRATES FOR HYPOGLYCEMIA PO PRN ×2 (02:53)
[2022-03-26] MEDS ORDERED: DEXTROSE 50% 50 ML SYRINGE IV PRN ×2 (02:53)
[2022-03-26] MEDS ORDERED: GLUCAGON FOR INJ 1 MG VIAL SQ PRN ×2 (02:53)
[2022-03-26] MEDS ORDERED: ALBUTEROL HFA 8 GM INHALER INH PRN (02:53)
[2022-03-26] MEDS ORDERED: NICOTINE POLACRILEX 2 MG GUM MT PRN ×2 (02:53→10:55)
[2022-03-26] MEDS ORDERED: GLUCOSE 10 TAB/TUBE PO PRN ×2 (02:53)
[2022-03-26] MEDS ORDERED: LORazepam 1 MG TAB PO PRN (02:53)
[2022-03-26] MEDS ORDERED: GLUCOSE 40% GEL 15 GM TUBE PO PRN ×2 (02:53)
[2022-03-26] MEDS ORDERED: LEVALBUTEROL HCL 1.25 MG/3 ML NEB NEB PRN (03:15)
[2022-03-26 05:59] LABS: Basophils # (auto) 0.13 K/uL (0-0.2); Basophils % (auto) 0.9 %; Eosinophils # (auto) 0.25 K/uL (0-0.50); Eosinophils % (auto) 1.8 %; Hematocrit (blood only) 36.5 % (40.1-51.0); Hemoglobin 11.7 g/dl (14.0-18.0); Immature Granulocytes # (auto) 0.07 K/uL (0.00-0.02); Immature Granulocytes % (auto) 0.5 %; Lymphocytes # (auto) 1.88 K/uL (1.2-3.4); Lymphocytes % (auto) 13.5 %; Mean Corpuscular Hemoglobin 26.8 pg (25.0-34.0); Mean Corpuscular Hgb Conc 32.1 g/dL (32.0-36.0); Mean Corpuscular Volume 83.5 fL (80.0-100.0); Monocytes # (auto) 1.08 K/uL (0.24-0.82); Monocytes % (auto) 7.8 %; Neutrophils # (auto) 10.48 K/uL (1.4-6.5); Neutrophils % (auto) 75.5 %; Platelet Count 359 K/uL (130-400); RDW Coefficient of Variation 14.8 % (11.5-14.5); RDW Standard Deviation 45.3 fL (36.4-46.3); Red Blood Count 4.37 M/uL (4.63-6.08); White Blood Count 13.89 K/ul (4.8-10.8)
--- NOTE | 2022-03-26 06:14 | History and Physical Report ---
DATE OF ADMISSION: 03/26/2022. CHIEF COMPLAINT: Hypertensive urgency and emergency. HISTORY OF PRESENT ILLNESS: A 31-year-old female who is a transgender male to female with history of type 2 diabetes, hypertension, morbid obesity, depression, bipolar, gender dysphoria, primary narcolepsy, ongoing tobacco abuse, smokes 2-3 packs of cigarettes daily, presents with hypertensive urgency and emergency. The patient states she stopped her medications because she was doing methamphetamines and smoking pot and does not want to mess up with interaction with the medications. She was snorting the drugs. About 3 weeks ago she stopped them. Not have any withdrawal symptoms, not have any cravings, but blood pressure is running high. She went to [facility] where the blood pressure was high, but left the hospital a couple of days ago. She is also feeling bilateral flank pain and thinks the belly is getting bloated. She went to PCP's office and was sent in here. When she came in, the blood pressure was very high, it was 240/143. She was given a dose of labetalol and hydralazine and also a dose of Ativan. Blood pressure was not coming down, started on nitro drip. Her troponin is also elevated at 113 and BNP was 525. The patient states she thinks she started taking blood pressure medications since last 1 week, but also she has lost a lot of medications; whatever medications she has, she is taking them. Denies any headache. No blurred vision, double vision. No earache, no runny nose, no sore throat. Has a dry cough. Denies any fevers. Appetite is okay. No difficulty swallowing. Denies any chest pain, but on and off she gets short of breath. No nausea, no abdominal pain. Normal bowel and bladder movements. Ambulates okay. Currently, feeling hungry and wants to eat. ALLERGIES: No known drug allergies. PAST MEDICAL HISTORY: As mentioned above. PAST SURGICAL HISTORY: None as per records. MEDICATIONS: Albuterol 2 puffs inhalation b.i.d. p.r.n., aripiprazole 5 mg p.o. daily, atomoxetine 40 mg p.o. daily, buspirone 10 mg p.o. b.i.d., Coreg 3.125 mg p.o. b.i.d., chlorthalidone 25 mg p.o. daily, estradiol 2 mg p.o. daily, lorazepam 1 mg p.o. t.i.d. p.r.n., losartan 100 mg p.o. daily, metformin 500 mg p.o. b.i.d., omeprazole 20 mg p.o. daily, quetiapine 100 mg p.o. at bedtime, venlafaxine 150 mg p.o. daily. FAMILY HISTORY: Significant for no family history on file. SOCIAL HISTORY: Smokes 2-3 packs of cigarettes daily, snorted methamphetamines and also smoked pot, last was 3 weeks ago. Denies any alcohol use. REVIEW OF SYSTEMS: As per HPI. Rest of the review of systems is negative. PHYSICAL EXAMINATION: GENERAL: The patient is morbidly obese, not in acute distress. VITAL SIGNS: Temperature 36.7, pulse 120, respiratory rate 23, blood pressure maximum was 240/143, currently 159/95, oxygen 97% on room air. HEENT: Pupils equal, round and reactive to light. Oral mucosa moist. NECK: No JVD, no neck masses. CARDIOVASCULAR: S1 and S2 heard. Regular rate and rhythm. No murmur, no gallop. RESPIRATORY SYSTEM: Normal AP diameter. No accessory muscle use. No wheezing, no crackles. ABDOMEN: Soft, bowel sounds present, nontender, no distention. CENTRAL NERVOUS SYSTEM: Alert and oriented. Speech is clear. No facial droop. Obeys simple commands. Moves extremities. EXTREMITIES: Upper extremity has scratching wounds. No edema in the lower extremity. No erythema seen. LABORATORY DATA: WBC 13, hemoglobin 12.4, hematocrit 38.7, platelets 383. PT 11, INR 1, APTT 23.4. D-dimer 660. Sodium 136, potassium 4.3, chloride 106, bicarbonate 23, BUN 14, creatinine 0.8, serum glucose 116, calcium 8.7, total bilirubin 0.5, AST 64, ALT 57, alkaline phosphatase 107. Troponin I of 113, repeat is 116. BNP 525. Urinalysis, +4 protein. SARS-CoV-2 PCR negative. Influenza A and B PCR negative. RSV PCR negative. IMAGING DATA: CTA chest, preliminary report, no PE, possible bronchitis. CT of the abdomen and pelvis, preliminary report unremarkable. Chest x-ray, possible mild pulmonary vascular congestion. EKG: Sinus tachycardia at a rate of 113, incomplete bundle-branch block. ASSESSMENT AND PLAN: This is a 31-year-old female who presents with hypertensive urgency and emergency. 1. Hypertensive urgency and emergency with complaining of bloating in the stomach and mild elevation of troponin and mild elevation of BNP. Not taking any medications as she was taking drugs. Seems to be on chlorthalidone, Coreg, and losartan at home. The patient is a poor historian regarding these medications. Currently, received labetalol and hydralazine in the ER and currently on nitro drip, which will be continued and was monitored in the ICU. Consult cardiology. Echocardiogram. 2. Type 2 diabetes: On metformin, which she will hold. Placed on insulin sliding scale. Follow HbA1c levels. 3. Morbid obesity: Needs counseling. 4. Gastroesophageal reflux disease: On omeprazole. 5. Depression, bipolar disorder: on aripiprazole, atomoxetine, buspirone, Ativan p.r.n., quetiapine at bedtime, venlafaxine daily. Will consult psychiatry to help with medications. 6. Tobacco abuse: Needs counseling. nicotine gums.Possible bronchitis on ct scan will follow final report. 7. Morbid obesity: Needs sleep apnea study as outpatient. 8. Deep venous thrombosis prophylaxis: On Lovenox. DISPOSITION: Closely monitor in the ICU for now. Level 1 full code. Expect to discharge home and follow with family doctor. Job ID: [id number] MTDD
[2022-03-26 06:21] LABS: Albumin Level 3.4 gm/dl (3.4-5.0); Bilirubin,Total 0.6 mg/dl (0.2-1.0); Calcium 8.4 mg/dl (8.5-10.1); Magnesium 1.5 mg/dl (1.7-2.4); Potassium 3.6 mmol/L (3.5-5.1)
[2022-03-26 06:27] LABS: Albumin Globulin Ratio 1.2 (0.9-2); BUN Creatinine Ratio 15.8 (10-20); Creatinine Clr Calc Pharmacy 160.7 ml/min; Est GFR (African American) 122.3 ml/min; Est GFR (Non-African American) 105.5 ml/min; Globulin 2.8 gm/dl (2.5-4.0); Phosphorus 3.6 mg/dl (2.5-4.9); Total Protein 6.2 gm/dl (6.0-8.3)
--- NOTE | 2022-03-26 06:58 | CT Scan Report ---
ABDOMEN AND PELVIS CT WITHOUT CONTRAST CT DOSE: 3323.00 mGy.cm HISTORY: Acute bilateral flank pain b/l flank pain TECHNIQUE: Multiaxial CT images of the abdomen and pelvis were performed without contrast. A dose lo wering technique was utilized adhering to the principles of ALARA. COMPARISON STUDY: CTA chest of same day FINDINGS: Trace pericardial effusion. The heart is mildly enlarged. Subsegmental left basilar densiti es favoring atelectasis. No pneumatosis or pneumoperitoneum. The study is degraded by respiratory mot ion artifact. The unenhanced spleen, pancreas and adrenal glands are unremarkable. Contracted gallbla dder. Hepatomegaly with hepatic steatosis. Horseshoe kidney without hydronephrosis. Decompressed urinary bladder with wall thickening. No urolit h identified. Mild prostamegaly. Aorta and IVC are unremarkable. No lymphadenopathy identified. No marquita wel obstruction or bowel wall thickening. Trace free pelvic fluid. Normal appendix. Mild generalized body wall edema. No acute fracture or suspicious bone lesion identified. Severe L4-L5 intervertebral disc space narrowing with vacuum disc phenomena and posterior disc osteophyte complex. Additional pos terior annular disc bulging noted at the L3-L4 level. IMPRESSION: 1. No urolith or obstructive uropathy. 2. Horseshoe kidney. 3. No bowel obstruction or bowel wall thickening. Normal appendix. 4. Hepatomegaly with hepatic steatosis. ACT 112: Negative or not required by law. The above report was generated using voice recognition software. It may contain grammatical, syntax o r spelling errors. Electronically signed by: Remy Jarrett M.D. 03/26/2022 6:55 AM
[2022-03-26] MEDS ORDERED: PERFLUTREN LIPID MICROSPHERE (DEFINITY) IV ONE (07:21)
--- NOTE | 2022-03-26 07:28 | CT Scan Report ---
CHEST CTA for PULMONARY ARTERIES CT DOSE: HISTORY: Shortness of breath. Bilateral flank pain. TECHNIQUE: Multiaxial CT images of the chest were performed following the intravenous administration of contrast to evaluate the pulmonary arteries. Maximal intensity projection images were also obtaine d. A dose lowering technique was utilized adhering to the principles of ALARA. COMPARISON STUDY: None. FINDINGS: The visualized liver and spleen are unremarkable. No pleural or pericardial effusions. Norm al thyroid gland. Normal caliber esophagus. No evidence for an aortic dissection. No filling defects within the pulmonary arteries to suggest a pulmonary embolus. Shotty nonspecific mediastinal lymph no finn are noted. No hilar lymphadenopathy. No acute fractures. No pneumothorax. The heart is borderline enlarged. Mild interlobular septal thickening with scattered subtle groundglass densities. Small clu ster of groundglass tree-in-bud nodular opacities within the right middle lobe. This includes a 5 mm nodule within the right middle lobe on image 117. Mild central bronchial wall thickening. IMPRESSION: 1. No evidence for a pulmonary embolus. 2. Mild interlobular septal thickening with subtle groundglass densities. This could represent develo ping congestive change. 3. A few small tree-in-bud nodular opacities within the right middle lobe including a 5 mm nodule. Th is favors mild inflammatory/infectious change. 4. Mild central bronchial wall thickening. I. Shotty nonspecific mediastinal lymph nodes. 5. Borderline cardiomegaly. ACT 112: Negative or not required by law. Electronically signed by: Julian Ibrahim M.D. 03/26/2022 7:27 AM
[2022-03-26] MEDS ORDERED: ICU Protocol for HYPERglycemia SCH (07:30)
[2022-03-26] MEDS: ICU ELECTROLYTE REPLACEMENT PROTOCOL SCH ×2 (08:23→10:32)
[2022-03-26] MEDS ORDERED: busPIRone 5 MG TAB PO SCH (09:00)
[2022-03-26] MEDS ORDERED: estradioL 1 MG TAB PO SCH (09:00)
[2022-03-26] MEDS ORDERED: PANTOprazole 40 MG TAB PO SCH (09:00)
[2022-03-26] MEDS ORDERED: ENOXAPARIN INJ 40 MG/0.4 ML SYR SQ SCH (09:00)
[2022-03-26] MEDS ORDERED: carvediloL 3.125 MG TAB PO SCH (09:00)
[2022-03-26] MEDS ORDERED: VENLAFAXINE HCL XR 150 MG CAPXR PO SCH (09:00)
[2022-03-26] MEDS ORDERED: carvediloL 6.25 MG TAB PO SCH (09:15)
[2022-03-26] MEDS ORDERED: CHLORTHALIDONE 25 MG TAB PO SCH (09:15)
[2022-03-26 09:33] LABS: Estimated Average Glucose 143 mg/dl; Hemoglobin A1C 6.6 % (4.5-5.6)
[2022-03-26] MEDS: POTASSIUM CHLORIDE CRTAB 20 MEQ TABCR PO SCH ×2 (10:08→11:09)
[2022-03-26] MEDS: MAGNESIUM OXIDE 400 MG TAB PO SCH ×2 (10:09→11:09)
[2022-03-26] MEDS: INSULIN ASPART PER UNIT SC SCH ×2 (10:10→11:09)
[2022-03-26] MEDS: NITROGLYCERIN/D5W 100MCG/ML 250 ML IV SCH ×2 (10:11→10:32)
--- NOTE | 2022-03-26 10:25 | Cardiology Consultation ---
Date of Consultation March 26, 2022 Assessment & Plan (1) Hypertensive emergency: (2) Substance abuse: (3) Elevated troponin level: Plan I reviewed the patient's echocardiogram and although it is limited due to poor acoustic windows and shows no significant valvular pathology and LV and RV function appear to be normal. I think the patient needs to be placed back on her antihypertensive medications. Elevated troponin is a type II elevation due to hypertension. I do not believe any additional cardiac testing is indicated. When appropriate, she can be discharged by the hospitalist service. History of Present Illness Attending Physician: Dion Camacho MD History of Present Illness This is a 31-year-old transgender female with a history of hypertension and unfortunately substance abuse. Several weeks ago, she was using methamphetamine and became worried about taking her prescribed medications in combination with methamphetamine. So she stopped all her medications. She presented with hypertensive urgency. Allergies Allergy/AdvReac Type Severity Reaction Status Date / Time No Known Allergies Allergy Verified 03/26/22 02:22 Home Medications Medication Instructions Recorded Confirmed Type albuterol sulfate 90 mcg/actuation 2 puff inhalation BID PRN 03/26/22 03/26/22 History aerosol inhaler (Ventolin HFA) Shortness Of Breath Or Wheezing aripiprazole 5 mg tablet 5 mg PO DAILY 03/26/22 03/26/22 History atomoxetine 40 mg capsule 40 mg PO DAILY 03/26/22 03/26/22 History buspirone 10 mg tablet 10 mg PO BID 03/26/22 03/26/22 History carvedilol 3.125 mg tablet 3.125 mg PO BID 03/26/22 03/26/22 History chlorthalidone 25 mg tablet 25 mg PO DAILY 03/26/22 03/26/22 History estradiol 2 mg tablet 2 mg PO DAILY 03/26/22 03/26/22 History lorazepam 1 mg tablet 1 mg PO TID PRN Anxiety 03/26/22 03/26/22 History losartan 100 mg tablet 100 mg PO DAILY 03/26/22 03/26/22 History metformin 500 mg tablet,extended 500 mg PO BID 03/26/22 03/26/22 History release 24 hr omeprazole 20 mg capsule,delayed 20 mg PO DAILY 03/26/22 03/26/22 History release quetiapine 100 mg tablet 100 mg PO HS 03/26/22 03/26/22 History venlafaxine 150 mg 150 mg PO DAILY 03/26/22 03/26/22 History capsule,extended release 24 hr Patient History Medical History Asthma CHF (congestive heart failure) Depression with anxiety Gender dysphoria in adult Hypertension [id number] transgender person No pertinent family history Non-ST elevation CA (NSTEMI) Surgical History History of hernia repair History of kidney removal Social History Smoking Status: Current every day smoker Second Hand Exposure: No; Do You Dip or Chew Tobacco: No; Tobacco Cessation Education Requested by Patient: No Hx Alcohol Use: No Hx Substance Use: Yes Prescribed Medications: Marijuana Non-Prescribed Medications: Crack / Cocaine and Methamphetamines Last Used Substance: Days (ago) Preferred Language: Icelandic Communication Ability: Effective Lip Cutter Required: No Beliefs That Will Affect Care: None Current Living Situation: Significant Other Other Information That Helps Us Care for You: No Feels Safe at Home: Yes Safety Concerns: Feels Safe At This Time Sunscreen Use: No Assistive Devices: None Review of Systems Review of Systems: Review of Systems: See HPI for pertinent positives. All other 10 point review of systems are negative. Physical Exam Physical Exam: General: no acute distress and stated age Head: normocephalic, no masses, lesions, tenderness or abnormalities Eyes: conjunctiva are pink and non-injected, sclera clear Neck: supple, no adenopathy, no bruits, normal jugular venous pulse, no hepatojugular reflux Chest: normal shape and normal respiratory effort Lungs: clear to auscultation and percussion Cardiac Exam: - regular rate & rhythm, no murmurs gallops or rubs - normal S1, normal S2 Pulses: 2(+) throughout Abdomen: abdomen soft, non-tender, no abnormal masses and no hepatosplenomegaly Musculoskeletal: no gait disturbance, no joint inflammation, no deforming arthritis Extremities: no edema and no cyanosis Neuro: grossly normal exam Results & Data ([facility]) Vital Signs (Past 12 Hours) Vital Signs Temp Pulse Pulse Resp BP BP Pulse Ox 03/26/22 07:49 136/96 03/26/22 07:49 117 H 20 97 03/26/22 07:00 149/100 H 03/26/22 07:00 115 H 21 96 03/26/22 06:45 113 H 24 95 03/26/22 06:45 156/97 H 03/26/22 06:00 117 H 33 H 94 03/26/22 06:00 164/99 H 03/26/22 05:45 178/94 H 03/26/22 05:45 117 H 47 H 95 03/26/22 05:31 159/94 H 03/26/22 05:31 119 H 22 93 03/26/22 05:30 116 H 36 H 94 03/26/22 05:01 163/98 H 03/26/22 05:01 120 H 30 H 95 03/26/22 05:00 94 03/26/22 04:46 161/116 H 03/26/22 04:46 122 H 38 H 96 03/26/22 04:35 149/101 H 03/26/22 04:35 124 H 34 H 97 03/26/22 04:30 125 H 34 H 94 03/26/22 04:30 156/109 H 03/26/22 04:28 126 H 26 H 98 03/26/22 04:28 151/112 H 03/26/22 04:15 157/105 H 03/26/22 04:15 121 H 39 H 96 03/26/22 04:01 121 H 25 H 96 03/26/22 04:01 145/94 H 03/26/22 04:00 120 H 23 97 03/26/22 03:45 121 H 32 H 97 03/26/22 03:45 159/95 H 03/26/22 03:38 154/92 H 03/26/22 03:38 120 H 24 95 03/26/22 03:30 122 H 30 H 98 03/26/22 03:20 122 H 97 03/26/22 02:15 124 H 37 H 03/26/22 02:53 36.7 C 122 H 22 159/95 H 94 03/26/22 02:53 37 C 121 H 22 154/92 H 94 03/26/22 02:10 121 H 41 H 03/26/22 02:10 182/133 H 03/26/22 02:01 121 H 19 03/26/22 02:01 189/130 H 03/26/22 02:00 123 H 19 03/26/22 02:55 03/26/22 01:50 121 H 38 H 03/26/22 01:50 176/127 H 03/26/22 01:40 121 H 35 H 03/26/22 01:40 200/130 H 03/26/22 01:30 120 H 22 03/26/22 01:30 211/127 H 03/26/22 01:20 122 H 30 H 03/26/22 01:20 208/133 H 03/26/22 01:10 120 H 29 H 03/26/22 01:10 182/130 H 03/26/22 01:09 121 H 24 03/26/22 01:03 24 03/26/22 00:20 123 H 25 H 03/26/22 00:20 201/149 H 03/26/22 00:10 121 H 27 H 03/26/22 00:10 176/152 H 03/26/22 00:05 120 H 38 H 03/26/22 00:05 209/152 H 03/26/22 00:00 117 H 17 03/26/22 00:00 204/130 H 03/25/22 23:50 119 H 37 H 03/25/22 23:50 226/150 H 03/25/22 23:40 119 H 29 H 03/25/22 23:40 215/166 H 03/25/22 23:30 119 H 36 H 03/25/22 23:30 223/139 H 03/25/22 23:20 119 H 22 03/25/22 23:20 241/143 H 03/25/22 23:16 118 H 25 H 03/25/22 23:16 209/153 H 03/25/22 23:10 120 H 26 H 03/25/22 23:10 234/151 H 03/25/22 23:00 115 H 30 H 03/25/22 23:00 223/159 H 03/25/22 22:50 117 H 38 H 03/25/22 22:50 221/139 H 03/25/22 22:41 115 H 22 03/25/22 22:41 200/149 H 03/25/22 22:40 112 H 22 03/25/22 22:38 182/148 H 03/25/22 22:38 111 H 30 H 03/25/22 22:30 113 H 15 03/25/22 22:27 113 H 17 03/25/22 22:27 228/172 H O2 Del Method 03/26/22 07:49 03/26/22 07:49 Room Air 03/26/22 07:00 03/26/22 07:00 03/26/22 06:45 03/26/22 06:45 03/26/22 06:00 03/26/22 06:00 03/26/22 05:45 03/26/22 05:45 03/26/22 05:31 03/26/22 05:31 03/26/22 05:30 03/26/22 05:01 03/26/22 05:01 03/26/22 05:00 03/26/22 04:46 03/26/22 04:46 03/26/22 04:35 03/26/22 04:35 03/26/22 04:30 03/26/22 04:30 03/26/22 04:28 03/26/22 04:28 03/26/22 04:15 03/26/22 04:15 03/26/22 04:01 03/26/22 04:01 03/26/22 04:00 03/26/22 03:45 03/26/22 03:45 03/26/22 03:38 03/26/22 03:38 03/26/22 03:30 03/26/22 03:20 03/26/22 02:15 03/26/22 02:53 Room Air 03/26/22 02:53 Room Air 03/26/22 02:10 03/26/22 02:10 03/26/22 02:01 03/26/22 02:01 03/26/22 02:00 03/26/22 02:55 Room Air 03/26/22 01:50 03/26/22 01:50 03/26/22 01:40 03/26/22 01:40 03/26/22 01:30 03/26/22 01:30 03/26/22 01:20 03/26/22 01:20 03/26/22 01:10 03/26/22 01:10 03/26/22 01:09 03/26/22 01:03 03/26/22 00:20 03/26/22 00:20 03/26/22 00:10 03/26/22 00:10 03/26/22 00:05 03/26/22 00:05 03/26/22 00:00 03/26/22 00:00 03/25/22 23:50 03/25/22 23:50 03/25/22 23:40 03/25/22 23:40 03/25/22 23:30 03/25/22 23:30 03/25/22 23:20 03/25/22 23:20 03/25/22 23:16 03/25/22 23:16 03/25/22 23:10 03/25/22 23:10 03/25/22 23:00 03/25/22 23:00 03/25/22 22:50 03/25/22 22:50 03/25/22 22:41 03/25/22 22:41 03/25/22 22:40 03/25/22 22:38 03/25/22 22:38 03/25/22 22:30 03/25/22 22:27 03/25/22 22:27 Laboratory Results Laboratory Results - last 24 hr 03/25/22 03/25/22 03/25/22 20:47 20:47 20:47 WBC 13.00 H RBC 4.60 L Hgb 12.4 L Hct 38.7 L MCV 84.1 MCH 27.0 MCHC 32.0 RDW Std Deviation 45.3 RDW Coeff of Liza 15.0 H Plt Count 383 MPV 10.4 Immature Gran % (Auto) 0.4 Neut % (Auto) 73.4 Lymph % (Auto) 17.1 [place] % (Auto) 6.4 Eos % (Auto) 1.8 Baso % (Auto) 0.9 Neut # (Auto) 9.54 H Lymph # (Auto) 2.22 [place] # (Auto) 0.83 H Eos # (Auto) 0.24 Baso # (Auto) 0.12 Immature Gran # (Auto) 0.05 H PT Cancelled INR Cancelled APTT Cancelled PTT Ratio Cancelled D-Dimer Sodium 136 Potassium 4.3 Chloride 106 Carbon Dioxide 23 Anion Gap 7 BUN 14 Creatinine 0.87 Est Cr Clr Drug Dosing 174.0 Est GFR ( Amer) 132.4 Est GFR (Non-Af Amer) 114.2 BUN/Creatinine Ratio 16.1 Glucose 116 H Estimat Average Glucose Hemoglobin A1c Calcium 8.7 Phosphorus Magnesium Total Bilirubin 0.5 AST 64 H ALT 57 H Alkaline Phosphatase 107 H Troponin I High Sens 113.1 H* B-Natriuretic Peptide Total Protein 6.8 Albumin 3.6 Globulin 3.2 Albumin/Globulin Ratio 1.1 Urine Color Urine Appearance Urine pH POC Urine pH Ur Specific [place] Urine Protein POC Urine Protein Urine Glucose (UA) POC Ur Glucose (UA) Urine Ketones POC Urine Ketones Urine Blood POC Urine Blood Urine Nitrite POC Urine Nitrite Urine Bilirubin POC Urine Bilirubin Urine Urobilinogen POC Urine Urobilinogen Ur Leukocyte Esterase POC U Leukocyte Esteras Urine WBC (Auto) Urine RBC (Auto) U Hyaline Cast (Auto) U Epithel Cells (Auto) Urine Bacteria (Auto) Nasal Screen MRSA (PCR) SARS-CoV-2 (PCR) Influenza Type A (PCR) Influenza Type B (PCR) RSV (RT-PCR) 03/25/22 03/25/22 03/25/22 20:47 22:34 22:58 WBC RBC Hgb Hct MCV MCH MCHC RDW Std Deviation RDW Coeff of Liza Plt Count MPV Immature Gran % (Auto) Neut % (Auto) Lymph % (Auto) [place] % (Auto) Eos % (Auto) Baso % (Auto) Neut # (Auto) Lymph # (Auto) [place] # (Auto) Eos # (Auto) Baso # (Auto) Immature Gran # (Auto) PT 11.0 INR 1.0 APTT 23.4 PTT Ratio 0.9 D-Dimer 660 H* Sodium Potassium Chloride Carbon Dioxide Anion Gap BUN Creatinine Est Cr Clr Drug Dosing Est GFR ( Amer) Est GFR (Non-Af Amer) BUN/Creatinine Ratio Glucose Estimat Average Glucose Hemoglobin A1c Calcium Phosphorus Magnesium Total Bilirubin AST ALT Alkaline Phosphatase Troponin I High Sens B-Natriuretic Peptide 525 H Total Protein Albumin Globulin Albumin/Globulin Ratio Urine Color Yellow Urine Appearance Clear Urine pH 5.5 POC Urine pH Ur Specific [place] 1.020 Urine Protein 4+ H POC Urine Protein Urine Glucose (UA) Negative POC Ur Glucose (UA) Urine Ketones Negative POC Urine Ketones Urine Blood Negative POC Urine Blood Urine Nitrite Negative POC Urine Nitrite Urine Bilirubin Negative POC Urine Bilirubin Urine Urobilinogen Negative POC Urine Urobilinogen Ur Leukocyte Esterase Negative POC U Leukocyte Esteras Urine WBC (Auto) 1-5 Urine RBC (Auto) 0-4 U Hyaline Cast (Auto) 1-5 U Epithel Cells (Auto) 20-30 H Urine Bacteria (Auto) Negative Nasal Screen MRSA (PCR) SARS-CoV-2 (PCR) Influenza Type A (PCR) Influenza Type B (PCR) RSV (RT-PCR) 03/25/22 03/26/22 03/26/22 22:58 00:15 01:25 WBC RBC Hgb Hct MCV MCH MCHC RDW Std Deviation RDW Coeff of Liza Plt Count MPV Immature Gran % (Auto) Neut % (Auto) Lymph % (Auto) [place] % (Auto) Eos % (Auto) Baso % (Auto) Neut # (Auto) Lymph # (Auto) [place] # (Auto) Eos # (Auto) Baso # (Auto) Immature Gran # (Auto) PT INR APTT PTT Ratio D-Dimer Sodium Potassium Chloride Carbon Dioxide Anion Gap BUN Creatinine Est Cr Clr Drug Dosing Est GFR ( Amer) Est GFR (Non-Af Amer) BUN/Creatinine Ratio Glucose Estimat Average Glucose Hemoglobin A1c Calcium Phosphorus Magnesium Total Bilirubin AST ALT Alkaline Phosphatase Troponin I High Sens 116.4 H* B-Natriuretic Peptide Total Protein Albumin Globulin Albumin/Globulin Ratio Urine Color Urine Appearance Urine pH POC Urine pH 5 Ur Specific [place] Urine Protein POC Urine Protein 3+ H Urine Glucose (UA) POC Ur Glucose (UA) Normal Urine Ketones POC Urine Ketones 1+ (Small) H Urine Blood POC Urine Blood 50 H Urine Nitrite POC Urine Nitrite Negative Urine Bilirubin POC Urine Bilirubin 1+ H Urine Urobilinogen POC Urine Urobilinogen Normal Ur Leukocyte Esterase POC U Leukocyte Esteras Negative Urine WBC (Auto) Urine RBC (Auto) U Hyaline Cast (Auto) U Epithel Cells (Auto) Urine Bacteria (Auto) Nasal Screen MRSA (PCR) SARS-CoV-2 (PCR) NEGATIVE Influenza Type A (PCR) Negative Influenza Type B (PCR) Negative RSV (RT-PCR) Negative 03/26/22 03/26/22 03/26/22 03:00 05:40 05:40 WBC RBC Hgb Hct MCV MCH MCHC RDW Std Deviation RDW Coeff of Liza Plt Count MPV Immature Gran % (Auto) Neut % (Auto) Lymph % (Auto) [place] % (Auto) Eos % (Auto) Baso % (Auto) Neut # (Auto) Lymph # (Auto) [place] # (Auto) Eos # (Auto) Baso # (Auto) Immature Gran # (Auto) PT INR APTT PTT Ratio D-Dimer Sodium 136 Potassium 3.6 Chloride 101 Carbon Dioxide 28 Anion Gap 7 BUN 15 Creatinine 0.95 Est Cr Clr Drug Dosing 160.7 Est GFR ( Amer) 122.3 Est GFR (Non-Af Amer) 105.5 BUN/Creatinine Ratio 15.8 Glucose 170 H Estimat Average Glucose 143 Hemoglobin A1c 6.6 H Calcium 8.4 L Phosphorus 3.6 Magnesium 1.5 L Total Bilirubin 0.6 AST 49 H ALT 50 Alkaline Phosphatase 99 Troponin I High Sens B-Natriuretic Peptide Total Protein 6.2 Albumin 3.4 Globulin 2.8 Albumin/Globulin Ratio 1.2 Urine Color Urine Appearance Urine pH POC Urine pH Ur Specific [place] Urine Protein POC Urine Protein Urine Glucose (UA) POC Ur Glucose (UA) Urine Ketones POC Urine Ketones Urine Blood POC Urine Blood Urine Nitrite POC Urine Nitrite Urine Bilirubin POC Urine Bilirubin Urine Urobilinogen POC Urine Urobilinogen Ur Leukocyte Esterase POC U Leukocyte Esteras Urine WBC (Auto) Urine RBC (Auto) U Hyaline Cast (Auto) U Epithel Cells (Auto) Urine Bacteria (Auto) Nasal Screen MRSA (PCR) Negative SARS-CoV-2 (PCR) Influenza Type A (PCR) Influenza Type B (PCR) RSV (RT-PCR) 03/26/22 03/26/22 05:40 09:31 WBC 13.89 H RBC 4.37 L Hgb 11.7 L Hct 36.5 L MCV 83.5 MCH 26.8 MCHC 32.1 RDW Std Deviation 45.3 RDW Coeff of Liza 14.8 H Plt Count 359 MPV 10.0 Immature Gran % (Auto) 0.5 Neut % (Auto) 75.5 Lymph % (Auto) 13.5 [place] % (Auto) 7.8 Eos % (Auto) 1.8 Baso % (Auto) 0.9 Neut # (Auto) 10.48 H Lymph # (Auto) 1.88 [place] # (Auto) 1.08 H Eos # (Auto) 0.25 Baso # (Auto) 0.13 Immature Gran # (Auto) 0.07 H PT INR APTT PTT Ratio D-Dimer Sodium Potassium Chloride Carbon Dioxide Anion Gap BUN Creatinine Est Cr Clr Drug Dosing Est GFR ( Amer) Est GFR (Non-Af Amer) BUN/Creatinine Ratio Glucose Estimat Average Glucose Hemoglobin A1c Calcium Phosphorus Magnesium Total Bilirubin AST ALT Alkaline Phosphatase Troponin I High Sens Pending B-Natriuretic Peptide Total Protein Albumin Globulin Albumin/Globulin Ratio Urine Color Urine Appearance Urine pH POC Urine pH Ur Specific [place] Urine Protein POC Urine Protein Urine Glucose (UA) POC Ur Glucose (UA) Urine Ketones POC Urine Ketones Urine Blood POC Urine Blood Urine Nitrite POC Urine Nitrite Urine Bilirubin POC Urine Bilirubin Urine Urobilinogen POC Urine Urobilinogen Ur Leukocyte Esterase POC U Leukocyte Esteras Urine WBC (Auto) Urine RBC (Auto) U Hyaline Cast (Auto) U Epithel Cells (Auto) Urine Bacteria (Auto) Nasal Screen MRSA (PCR) SARS-CoV-2 (PCR) Influenza Type A (PCR) Influenza Type B (PCR) RSV (RT-PCR) Medications Administered Current Inpatient Medications Albuterol (Albuterol Hfa 8 Gm Inhaler) 2 puffs INH BID PRN PRN Reason: Shortness Of Breath Or Wheezing Stop: 04/25/22 02:52 Carvedilol (Carvedilol 6.25 Mg Tab) 6.25 mg PO BID GEOFF Stop: 04/25/22 09:14 Last Admin: 03/26/22 10:06 Dose: 6.25 mg Chlorthalidone (Chlorthalidone 25 Mg Tab) 50 mg PO QAM GEOFF Stop: 04/25/22 09:14 Last Admin: 03/26/22 10:06 Dose: 50 mg Dextrose (Dextrose 50% 50 Ml Syringe) 25 - 50 ml IV UD PRN; Protocol PRN Reason: Hypoglycemia Protocol Stop: 04/25/22 02:52 Enoxaparin Sodium (Enoxaparin Inj 40 Mg/0.4 Ml Syr) 40 mg SQ Q12H GEOFF Stop: 04/25/22 08:59 Last Admin: 03/26/22 10:02 Dose: 40 mg Estradiol (Estradiol 1 Mg Tab) 2 mg PO DAILY GEOFF Stop: 04/25/22 08:59 Last Admin: 03/26/22 10:03 Dose: 2 mg Glucagon (Glucagon For Inj 1 Mg Vial) 1 mg SQ UD PRN; Protocol PRN Reason: Hypoglycemia Protocol Stop: 04/25/22 02:52 Glucose (Glucose 40% Gel 15 Gm Tube) 15 - 30 gm PO UD PRN; Protocol PRN Reason: Hypoglycemia Protocol Stop: 04/25/22 02:52 Glucose (Glucose 10 Tab/Tube) 4 - 8 tab PO UD PRN; Protocol PRN Reason: Hypoglycemia Treatment Stop: 04/25/22 02:52 Nitroglycerin/Dextrose (Nitroglycerin/D5w 100 Mcg/Ml) 250 mls @ 24 mls/hr IV .[id number] [facility]; Protocol Stop: 04/24/22 21:59 Last Titration: 03/26/22 10:11 Dose: Infused Insulin Aspart (Insulin Aspart Per Unit) 0 units SC ACHS [facility] Stop: 04/25/22 07:29 Last Admin: 03/26/22 10:10 Dose: 6 units Levalbuterol HCl (Levalbuterol Hcl 1.25 Mg/3 Ml Neb) 1.25 mg NEB Q4H PRN; Protocol PRN Reason: Shortness Of Breath Or Wheezing Stop: 04/25/22 03:14 Lorazepam (Lorazepam 1 Mg Tab) 1 mg PO TID PRN PRN Reason: Anxiety Stop: 04/25/22 02:52 Last Admin: 03/26/22 10:09 Dose: 1 mg Magnesium Oxide (Magnesium Oxide 400 Mg Tab) 400 mg PO Q4H [facility] Stop: 03/26/22 12:46 Last Admin: 03/26/22 10:09 Dose: 400 mg Miscellaneous (Carbohydrates For Hypoglycemia ) 15 - 30 gm PO UD PRN PRN Reason: Hypoglycemia Protocol Stop: 04/25/22 02:52 Miscellaneous (Icu Electrolyte Replacement Protocol) 1 each N/A BID@06,18 [facility]; Protocol Stop: 04/02/22 05:59 Last Admin: 03/26/22 08:23 Dose: Not Given Nicotine Polacrilex (Nicotine Polacrilex 2 Mg Gum) 1 piece MT Q2H PRN PRN Reason: smoking cessation Stop: 04/25/22 02:52 Pantoprazole Sodium (Pantoprazole 40 Mg Tab) 40 mg PO DAILY [facility] Stop: 04/25/22 08:59 Last Admin: 03/26/22 10:03 Dose: 40 mg Potassium Chloride (Potassium Chloride Crtab 20 Meq Tabcr) 20 meq PO Q4H [facility] Stop: 03/26/22 12:46 Last Admin: 03/26/22 10:08 Dose: 20 meq Quetiapine Fumarate (Quetiapine Fumarate 100 Mg Tablet) 100 mg PO HS [facility] Stop: 04/25/22 20:59 Venlafaxine HCl (Venlafaxine Hcl Xr 150 Mg Capxr) 150 mg PO DAILY GEOFF Stop: 04/25/22 08:59
[2022-03-26] MEDS ORDERED: LORazepam 1 MG TAB PO STA (10:56)
--- NOTE | 2022-03-26 13:15 | Discharge Summary ---
Date of Service March 26, 2022 Admission HPI Per Admitting Provider A 31-year-old female who is a transgender male to female with history of type 2 diabetes, hypertension, morbid obesity, depression, bipolar, gender dysphoria, primary narcolepsy, ongoing tobacco abuse, smokes 2-3 packs of cigarettes daily, presents with hypertensive urgency and emergency. The patient states she stopped her medications because she was doing methamphetamines and smoking pot and does not want to mess up with interaction with the medications. She was snorting the drugs. About 3 weeks ago she stopped them. Not have any withdrawal symptoms, not have any cravings, but blood pressure is running high. She [facility] to [facility] where the blood pressure was high, but left the hospital a couple of days ago. She is also feeling bilateral flank pain and thinks the belly is getting bloated. She went to PCP's office and was sent in here. When she came in, the blood pressure was very high, it was 240/143. She was given a dose of labetalol and hydralazine and also a dose of Ativan. Blood pressure was not coming down, started on nitro drip. Her troponin is also elevated at 113 and BNP was 525. The patient states she thinks she started taking blood pressure medications since last 1 week, but also she has lost a lot of medications; whatever medications she has, she is taking them. Denies any headache. No blurred vision, double vision. No earache, no runny nose, no sore throat. Has a dry cough. Denies any fevers. Appetite is okay. No difficulty swallowing. Denies any chest pain, but on and off she gets short of breath. No nausea, no abdominal pain. Normal bowel and bladder movements. Ambulates okay. Currently, feeling hungry and wants to eat. Admission Exam Per Admitting Provider GENERAL: The patient is morbidly obese, not in acute distress. VITAL SIGNS: Temperature 36.7, pulse 120, respiratory rate 23, blood pressure maximum was 240/143, currently 159/95, oxygen 97% on room air. HEENT: Pupils equal, round and reactive to light. Oral mucosa moist. NECK: No JVD, no neck masses. CARDIOVASCULAR: S1 and S2 heard. Regular rate and rhythm. No murmur, no gallop. RESPIRATORY SYSTEM: Normal AP diameter. No accessory muscle use. No wheezing, no crackles. ABDOMEN: Soft, bowel sounds present, nontender, no distention. CENTRAL NERVOUS SYSTEM: Alert and oriented. Speech is clear. No facial droop. Obeys simple commands. Moves extremities. EXTREMITIES: Upper extremity has scratching wounds. No edema in the lower extremity. No erythema seen. Principal Diagnosis Hypertensive urgency Demand ischemia Discharge Exam Constitutional: Awake, alert orient x3; not in distress. Morbidly obese. Respiratory: normal respiratory effort, lungs clear to auscultation, no wheeze, rales, rhonchi. Normal insp/exp effort, no accessory muscle use Cardiovascular: RRR, no murmur, no edema Vessels: no JVD or carotid bruit Chest: normal inspection of chest Abdomen: normal bowel sounds, soft, nontender, no hepatosplenomegaly Musculoskeletal: no cyanosis or clubbing, extremities motor strength 5/5 Skin: no rashes, warm and dry normal turgor Neurologic: PERRL, EOMI, accommodation nl, no face palsy, no dysarthria CN's II- XI intact bilaterally and moves all extremities Psychiatric: A+Ox3, euthymic affect Lymphatic: no cervical or axillary lymphadenopathy : deferred Discharge Data Allergies Allergy/AdvReac Type Severity Reaction Status Date / Time No Known Allergies Allergy Verified 03/26/22 02:22 Consultations 03/26/22 02:53 Consult Audiometrist Routine 03/26/22 08:00 Consult Cardiology Routine Consult Psychiatry Routine Ordered Studies 03/26/22 00:30 CT Abd and Pelvis [CT abd pelvis wo con] Urgent CT angio chest PE protocol Urgent Hospital Course (1) Hypertensive urgency: (2) Demand ischemia: (3) Morbid obesity: Plan A 31-year-old female who is a transgender male to female with history of type 2 diabetes, hypertension, morbid obesity, depression, bipolar, gender dysphoria, primary narcolepsy, ongoing tobacco abuse, smokes 2-3 packs of cigarettes daily, presents with high blood pressure. She was in primary care office and was sent to the ED. Her blood pressure on admission was 240/143. Patient has been noncompliant with her medication for last several weeks. Patient also reported history of methamphetamine use; she has discontinued use of methamphetamines in the last 2 to 3 weeks. She was given labetalol, hydralazine and was placed on nitro drip. She was also found to have troponin elevation of 113. She was admitted to ICU. Cardiology was consulted. Echocardiogram was reviewed by cardiology; was limited due to poor acoustic windows but did not show significant valvular pathology and LV and RV function. The elevated troponin was thought secondary to demand ischemia due to high blood pressure. No additional cardiac testing was recommended. Patient was discharged home with prescription for antihypertensive(Coreg, losartan and chlorthalidone). Total Time Total Time Spent Total Time Spent (In Minutes): 45 Total Time Includes: Examination of the Patient, Discharge Planning, Medication Reconciliation, Communication With Other Providers and Other Discharge Plan Discharge Items Patient Disposition: Home - Self-Care Reason For Visit: HTN URGENCY Discharge Diagnosis: Hypertensive urgency Demand Ischemia Activity: Resume your previous activity Non-emergency contact: Primary Care Provider Call non-emergency contact if: you have any medication questions and your symptoms worsen Follow-up/Referrals: [facility] [Other] (Telehealth appointment on Friday03/29/2022 @ 3pm with Dr. Betzaida Murphy. A link will be sent to your email ) Jenny Zhang MD [Primary Care Provider] - (Date & Time 04/01/2022 3:20 PM Provider Carlos Zacarias MD Department Family Practice [facility] ) Diet: Regular Addtl Attending Provider Instructions: You were admitted to the hospital with hypertensive urgency. You are prescribed following medications for high blood pressure: 1) Coreg 6.25 mg twice daily. 2) chlorthalidone 25 mg once daily 3) losartan 100 mg once daily. Please take your medication on a regular basis. Please measure your blood pressure daily and keep a record. Follow-up with primary care doctor. Pending Studies at Discharge: No Stand-Alone Forms: [facility], Smoking Cessation Medications and DC Order Prescriptions: New carvedilol 6.25 mg Tablet 6.25 mg PO BID Qty: 60 0RF chlorthalidone 25 mg Tablet 25 mg PO QAM Qty: 30 0RF Continued venlafaxine 150 mg capsule,extended release 24hr 150 mg PO DAILY quetiapine 100 mg tablet 100 mg PO HS buspirone 10 mg tablet 10 mg PO BID omeprazole 20 mg capsule,delayed release(DR/EC) 20 mg PO DAILY estradiol 2 mg tablet 2 mg PO DAILY lorazepam 1 mg tablet 1 mg PO TID PRN (Reason: Anxiety) albuterol sulfate [Ventolin HFA] 90 mcg/actuation HFA aerosol inhaler 2 puff INHALATION BID PRN (Reason: Shortness Of Breath Or Wheezing) atomoxetine 40 mg capsule 40 mg PO DAILY aripiprazole 5 mg tablet 5 mg PO DAILY losartan 100 mg tablet 100 mg PO DAILY Qty: 30 0RF metformin 500 mg tablet extended release 24 hr 500 mg PO BID Qty: 60 0RF Discontinued chlorthalidone 25 mg tablet 25 mg PO DAILY carvedilol 3.125 mg tablet 3.125 mg PO BID Discharge Orders: Discharge Order (Routine); Ordered 03/26/22 Ordered By: Dion Camacho Admission Data Admit Date/Time: 03/26/22 01:41 Attending Provider: Dion Camacho Admit Provider: Alejandro Nunn Primary Care Provider: Jenny Zhang Other Providers: Sudeep Liang ; Gilbert Moralez ; Jethro Chun ; Chris Dover ; Jarad Ledesma ; Raoul Palomares ; Elia Blair ; Rashmi Gallegos ; Aline Juarez ; Shanda Ny ; Serge Cunningham ; Ana Cristina Edwards ; Romelia Moulton ; Elia Manrique Other Interventions: Discharge Summary Assessment (RN) Last Done: 03/26/22 11:04
--- NOTE | 2022-03-26 14:09 | Psychiatric Consultation ---
Date of Consultation March 26, 2022 Consult reviewed earlier this am, liaison met with patient and confirmed aftercare with [facility]. I had held psych meds this am pending consult given that Effexor XR can be associated with BP elevations and unclear if taking consistently. Patient was discharge prior to completion of consult. Psych History Allergies Allergy/AdvReac Type Severity Reaction Status Date / Time No Known Allergies Allergy Verified 03/26/22 02:22 Home Medications Medication Instructions Recorded Confirmed Type albuterol sulfate 90 mcg/actuation 2 puff inhalation BID PRN 03/26/22 03/26/22 History aerosol inhaler (Ventolin HFA) Shortness Of Breath Or Wheezing aripiprazole 5 mg tablet 5 mg PO DAILY 03/26/22 03/26/22 History atomoxetine 40 mg capsule 40 mg PO DAILY 03/26/22 03/26/22 History buspirone 10 mg tablet 10 mg PO BID 03/26/22 03/26/22 History carvedilol 6.25 mg tablet 6.25 mg PO BID #60 tabs 03/26/22 Rx chlorthalidone 25 mg tablet 25 mg PO QAM #30 tabs 03/26/22 Rx estradiol 2 mg tablet 2 mg PO DAILY 03/26/22 03/26/22 History lorazepam 1 mg tablet 1 mg PO TID PRN Anxiety 03/26/22 03/26/22 History losartan 100 mg tablet 100 mg PO DAILY #30 tabs 03/26/22 Rx metformin 500 mg tablet,extended 500 mg PO BID #60 tabs 03/26/22 Rx release 24 hr omeprazole 20 mg capsule,delayed 20 mg PO DAILY 03/26/22 03/26/22 History release quetiapine 100 mg tablet 100 mg PO HS 03/26/22 03/26/22 History venlafaxine 150 mg 150 mg PO DAILY 03/26/22 03/26/22 History capsule,extended release 24 hr Patient History Medical History Asthma CHF (congestive heart failure) Depression with anxiety Gender dysphoria in adult Hypertension [id number] transgender person No pertinent family history Non-ST elevation LA (NSTEMI) Surgical History History of hernia repair History of kidney removal Social History Smoking Status: Current every day smoker Second Hand Exposure: No; Hx Alcohol Use: No Hx Substance Use: Yes Prescribed Medications: Marijuana Non-Prescribed Medications: Crack / Cocaine and Methamphetamines Last Used Substance: Days (ago) Preferred Language: Lithuanian Communication Ability: Effective Sap Business Analyst Required: No Beliefs That Will Affect Care: None Current Living Situation: Significant Other Feels Safe at Home: Yes Sunscreen Use: No Assistive Devices: None Physical Exam Vital Signs (Past 24 Hours): Last Vital Signs Temp 37.2 C 03/26/22 11:04 Pulse 96 H 03/26/22 11:04 Resp 18 03/26/22 11:04 BP 159/95 H 03/26/22 11:04 Pulse Ox 96 03/26/22 11:04 O2 Del Method 03/26/22 11:03 Coding Level of Care Code None
--- NOTE | 2022-03-26 14:29 | Electrocardiogram Report ---
Test Reason : Blood Pressure : / mmHG Vent. Rate : 113 BPM Atrial Rate : 113 BPM P-R Int : 148 ms QRS Dur : 110 ms QT Int : 356 ms P-R-T Axes : 049 095 034 degrees QTc Int : 488 ms Sinus tachycardia Rightward axis Incomplete right bundle branch block Borderline ECG No previous ECGs available Confirmed by Umer Phillips [id number]) on 03/26/2022 2:28:47 PM Referred By: Jenny Zhang Confirmed By:Contreras Phillips
[2022-03-26] MEDS ORDERED: QUEtiapine FUMARATE 100 MG TABLET PO SCH (21:00)
--- NOTE | 2022-03-27 12:33 | Communication Note ---
Date of Service: March 27, 2022 Code 44 attestation: 31-year-old male was admitted with hypertensive urgency and was managed appropriately by the attending physician. His medications were updated by the hot packer and he was discharged in stable medical condition. By CMS guidelines, a determination that the admission or continued stay is not medically necessary has been made by a member of the UR committee and a physician for this hospital stay, therefore a Code 44 will be completed and the Inpatient admission will be changed to outpatient. Dr Emmanuelle Gallo Member UR Committee
== END 2022-03-26 11:20 | disposition home or self-care (01) | DRG 304 ==
LOC: ED 20:06 → 1E 03-26 01:41 → INTOOBSV 03-26 01:41 → 1E 03-26 02:55
DX: E66.01 Morbid (severe) obesity due to excess calories; F64.0 Transsexualism; Z91.14 Patient's other noncompliance with medication regimen; Z79.84 Long term (current) use of oral hypoglycemic drugs; E11.9 Type 2 diabetes mellitus without complications; F19.10 Other psychoactive substance abuse, uncomplicated; I50.32 Chronic diastolic (congestive) heart failure; F17.210 Nicotine dependence, cigarettes, uncomplicated; Z68.41 Body mass index [BMI] 40.0-44.9, adult; F15.10 Other stimulant abuse, uncomplicated; Z79.51 Long term (current) use of inhaled steroids; Z79.899 Other long term (current) drug therapy; I24.8 Other forms of acute ischemic heart disease; I16.0 Hypertensive urgency; I50.33 Acute on chronic diastolic (congestive) heart failure; K21.9 Gastro-esophageal reflux disease without esophagitis